=== PATIENT | female | born 1990 | race American Indian/Alaskan Native ===

== ENCOUNTER 2021-09-07 17:38 | Emergency (ER) | payer OTHER, MEDICARE ==
[2021-09-07 19:57] VITALS: BP 105/68
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
== END 2021-09-07 21:00 | disposition home or self-care (01) ==
LOC: ED 17:38
DX: S16.1XXA Strain of muscle, fascia and tendon at neck level, initial encounter (principal); Z79.899 Other long term (current) drug therapy; V87.7XXA Person injured in collision between other specified motor vehicles (traffic), initial encounter; Y93.89 Activity, other specified; Y92.488 Other paved roadways as the place of occurrence of the external cause; Y99.8 Other external cause status
CPT/HCPCS: 99283